=== PATIENT | male | born 1985 | race American Indian/Alaskan Native ===

== ENCOUNTER 2016-11-19 06:52 | Emergency (ER) | payer MEDICAID ==
[2016-11-19 06:53] VITALS: BMI 20.3
[2016-11-19 07:06] VITALS: TEMP 97.9
[2016-11-19] MEDS ORDERED: Bacitracin 500 Units/gm Oint Foilpak UD TOP STA (07:26)
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
[2016-11-19] MEDS ORDERED: Lidocaine 1% Inj (20ml) SC STA (08:11)
[2016-11-19 09:29] VITALS: BP 117/67; PULSE 67; RESP 15; O2SAT 100
== END 2016-11-19 09:44 | disposition home or self-care (01) ==
LOC: ED 06:52
DX: S01.01XA Laceration without foreign body of scalp, initial encounter (principal); S41.112A Laceration without foreign body of left upper arm, initial encounter; S51.011A Laceration without foreign body of right elbow, initial encounter; Y08.89XA Assault by other specified means, initial encounter; Y92.89 Other specified places as the place of occurrence of the external cause

== ENCOUNTER 2016-12-03 22:44 | Emergency (ER) | payer MEDICAID ==
[2016-12-03 22:45] VITALS: BMI 20.3
[2016-12-03 22:58] VITALS: BP 130/80; PULSE 97; RESP 18; TEMP 98.1; O2SAT 98
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
== END 2016-12-04 00:02 | disposition home or self-care (01) ==
LOC: ED 22:44
DX: Z48.02 Encounter for removal of sutures (principal)

== ENCOUNTER 2017-01-19 22:49 | Emergency (ER) | payer MEDICAID ==
[2017-01-19 22:53] VITALS: BMI 21.3
[2017-01-19 22:55] VITALS: BP 133/85; RESP 18; TEMP 97.7; O2SAT 100
[2017-01-19] MEDS ORDERED: Albuterol-Ipratrop 3 mg / 0.5 (3 ml) UD IH STA (22:58)
--- NOTE | 2017-01-19 23:02 | ED PDOC ---
Arrival/HPI - General Historian: Patient - General Chief Complaint: Shortness Of Breath Time Seen by Provider: 01/19/17 22:56 - History of Present Illness Narrative History of Present Illness (Text): 01/19/17 22:59 31 y/o male, pmh including asthma, nkda, c/o wheezing and coughing x 1 hour. Pt. stated that he is out of his symbicort which he takes it daily, been coughing and wheezing started about 1 hour ago, no albuterol MDI as well, no night sweat, no dizziness, no numbness or tingling, no palpitation, no rash, no pleuritic pain, no other medical or psychological complaints. (Shon Herrera) Past Medical History - Provider Review Nursing Documentation Reviewed: Yes - Infectious Disease Hx of Infectious Diseases: None - Tetanus Immunization Tetanus Immunization: Up to Date - Cardiac Hx Cardiac Disorders: No - Pulmonary Hx Respiratory Disorders: Yes Hx Asthma: Yes - Neurological Hx Neurological Disorder: No - HEENT Hx HEENT Disorder: No - Renal Hx Renal Disorder: No - Endocrine/Metabolic Hx Endocrine Disorders: No - Hematological/Oncological Hx Blood Disorders: No - Integumentary Hx Dermatological Disorder: No - Musculoskeletal/Rheumatological Hx Musculoskeletal Disorders: No - Gastrointestinal Hx Gastrointestinal Disorders: No - Genitourinary/Gynecological Hx Genitourinary Disorders: No - Psychiatric Hx Psychophysiologic Disorder: No Hx Substance Use: No - Anesthesia Hx Anesthesia: No Hx Anesthesia Reactions: No Hx Malignant Hyperthermia: No Family/Social History - Physician Review Nursing Documentation Reviewed: Yes Family/Social History: Unknown Family HX Smoking Status: Never Smoked Hx Alcohol Use: Yes Frequency of alcohol use: Socially Hx Substance Use: No Allergies/Home Meds Allergies/Adverse Reactions: Allergies cat dander Allergy (Verified 11/30/15 17:37) ANAPHYLAXIS dog dander Allergy (Verified 11/30/15 17:37) ANAPHYLAXIS Home Medications: Home Meds Medication Instructions Recorded Confirmed Albuterol HFA [Ventolin HFA] 1 puff IH PRN PRN 11/30/15 11/30/15 Review of Systems - Review of Systems Constitutional: absent: Fatigue, Fevers Eyes: absent: Vision Changes ENT: absent: Hearing Changes Respiratory: Cough, Wheezing. absent: SOB, Sputum Cardiovascular: absent: Chest Pain Gastrointestinal: absent: Abdominal Pain, Diarrhea, Nausea, Vomiting Genitourinary Male: absent: Dysuria, Frequency, Hematuria Musculoskeletal: absent: Arthralgias, Back Pain, Neck Pain, Joint Swelling, Myalgias Psychiatric: absent: Anxiety, Depression, Suicidal Ideation Physical Exam Vital Signs Reviewed: Yes Temperature: Afebrile Blood Pressure: Normal Pulse: Tachycardic Respiratory Rate: Normal Appearance: Positive for: Well-Appearing, Non-Toxic, Comfortable Pain Distress: None Mental Status: Positive for: Alert and Oriented X 3 - Systems Exam Head: Present: Atraumatic, Normocephalic Pupils: Present: PERRL Extroacular Muscles: Present: EOMI Conjunctiva: Present: Normal Mouth: Present: Moist Mucous Membranes Neck: Present: Normal Range of Motion Respiratory/Chest: Present: Clear to Auscultation, Good Air Exchange, Wheezes, Decreased Breath Sounds, Other (mild decrease aeration and wheezing noted on the mid to lower lobe region). No: Respiratory Distress, Accessory Muscle Use, Rales, Rhonchi, Tachypneic Cardiovascular: Present: Regular Rate and Rhythm, Normal S1, S2. No: Murmurs Abdomen: Present: Normal Bowel Sounds. No: Tenderness, Distention, Peritoneal Signs Back: Present: Normal Inspection Upper Extremity: Present: Normal Inspection. No: Cyanosis, Edema Lower Extremity: Present: Normal Inspection. No: Edema Neurological: Present: GCS=15, CN II-XII Intact, Speech Normal Skin: Present: Warm, Dry, Normal Color. No: Rashes Psychiatric: Present: Alert, Oriented x 3, Normal Insight, Normal Concentration Vital Signs Temp Pulse Resp BP Pulse Ox 01/19/17 23:39 98 H 18 133/85 100 01/19/17 22:55 18 01/19/17 22:54 97.7 F 114 H 18 133/85 100 Medical Decision Making ED Course and Treatment: I was available for consultation during PA evaluation. The chart reviewed by me , and I agree with disposition. The documented history was done by the physician bearingizer. The documented physical exam was done by the physician bearingizer. The documented procedures were done by the physician bearingizer. ( Mauricio Patel) 01/19/17 23:01 -duoneb and prednisone -Pt. has symbicort prescription at home. 01/19/17 23:39 -Pt. feels much better, lung is clear to auscultate with no wheezing/crackles/ rhonchis, walking around and speaking on the cellphone with no respiratory complaints. -Discharge home with prednisone, albuterol MDI, continue symbicort at home, stay hydrated, bed rest, follow up with your own pmd within 2 days, return to the ER for any new or worsening signs or symptoms. (Shon Herrera) - Medication Orders Current Medication Orders: Discontinued Medications Albuterol/Ipratropium (Duoneb 3 Mg/0.5 Mg (3 Ml) Ud) 3 ml IH STAT STA Stop: 01/19/17 22:59 Last Admin: 01/19/17 23:23 Dose: 3 ml Prednisone (Prednisone Tab) 40 mg PO STAT STA Stop: 01/19/17 22:59 Last Admin: 01/19/17 23:23 Dose: 40 mg - PA / PORTER USED CAR LOT / Resident Statement MD/DO has reviewed & agrees with the documentation as recorded. Disposition/Present on Arrival - Present on Arrival Any Indicators Present on Arrival: No History of DVT/PE: No History of Uncontrolled Diabetes: No Urinary Catheter: No History of Decub. Ulcer: No History Surgical Site Infection Following: None - Disposition Have Diagnosis and Disposition been Completed?: Yes Disposition Time: 23:02 Patient Plan: Discharge - Disposition Diagnosis: Asthma attack Disposition: HOME/ ROUTINE Condition: GOOD Additional Instructions: Discharge home with prednisone, albuterol MDI, continue symbicort at home, stay hydrated, bed rest, follow up with your own pmd within 2 days, return to the ER for any new or worsening signs or symptoms. Prescriptions: Albuterol Sulfate [Proair Respiclick] 2 puff IH QID PRN #1 bot PRN Reason: Other predniSONE [Prednisone] 2 tab PO DAILY #6 tab Referrals: [facility] [place] [facility] [place] - Follow up with primary Forms: WORK NOTE
[2017-01-19 23:41] VITALS: PULSE 98
== END 2017-01-19 23:50 | disposition home or self-care (01) ==
LOC: ED 22:49
DX: J45.909 Unspecified asthma, uncomplicated (principal)

== ENCOUNTER 2017-11-17 20:43 | Emergency (ER) | payer MEDICAID ==
[2017-11-17 20:47] VITALS: BMI 19.8
[2017-11-17 20:48] VITALS: BP 138/90; PULSE 118; RESP 22; TEMP 97.8
[2017-11-17 20:50] VITALS: O2SAT 99
[2017-11-17] MEDS ORDERED: Albuterol-Ipratrop 3 mg / 0.5 (3 ml) UD IH STA ×2 (20:51→21:05)
[2017-11-17] MEDS ORDERED: Albuterol-Ipratrop 3 mg / 0.5 (3 ml) UD ONE (20:53)
--- NOTE | 2017-11-17 20:53 | ED PDOC ---
Arrival/HPI <Jey Yee - Last Filed: 11/17/17 21:31> - General Historian: Patient <Dane Sepulveda - Last Filed: 11/17/17 22:06> - General Time Seen by Provider: 11/17/17 20:47 - History of Present Illness Narrative History of Present Illness (Text): 11/17/17 20:50 32yo male Asthmatic who present with complaint of SOB since this evening. He did not use any inhaler at home. states this is his typical symptom, with Asthma. He denies fever, chills, cough, sick contact. (Dane Sepulveda) Past Medical History - Provider Review Nursing Documentation Reviewed: Yes - Infectious Disease Hx of Infectious Diseases: None - Tetanus Immunization Tetanus Immunization: Up to Date - Cardiac Hx Cardiac Disorders: No - Pulmonary Hx Respiratory Disorders: Yes Hx Asthma: Yes - Neurological Hx Neurological Disorder: No - HEENT Hx HEENT Disorder: No - Renal Hx Renal Disorder: No - Endocrine/Metabolic Hx Endocrine Disorders: No - Hematological/Oncological Hx Blood Disorders: No - Integumentary Hx Dermatological Disorder: No - Musculoskeletal/Rheumatological Hx Musculoskeletal Disorders: No - Gastrointestinal Hx Gastrointestinal Disorders: No - Genitourinary/Gynecological Hx Genitourinary Disorders: No - Psychiatric Hx Psychophysiologic Disorder: No Hx Substance Use: No - Anesthesia Hx Anesthesia: No Hx Anesthesia Reactions: No Hx Malignant Hyperthermia: No <Dane Sepulveda - Last Filed: 11/17/17 22:06> Family/Social History - Physician Review Nursing Documentation Reviewed: Yes Family/Social History: Unknown Family HX Smoking Status: Never Smoked Hx Alcohol Use: Yes Hx Substance Use: No <Dane Sepulveda - Last Filed: 11/17/17 22:06> Allergies/Home Meds <Jey Yee - Last Filed: 11/17/17 21:31> <Dane Sepulveda - Last Filed: 11/17/17 22:06> Allergies/Adverse Reactions: Allergies cat dander Allergy (Verified 11/17/17 20:47) ANAPHYLAXIS dog dander Allergy (Verified 11/17/17 20:47) ANAPHYLAXIS Home Medications: Home Meds Medication Instructions Recorded Confirmed Albuterol HFA [Ventolin HFA] 1 puff IH PRN PRN 11/30/15 11/17/17 Review of Systems - Physician Review All systems were reviewed & negative as marked: Yes - Review of Systems Constitutional: Normal Eyes: Normal ENT: Normal Respiratory: SOB, Wheezing. absent: Cough, Sputum Cardiovascular: Normal Gastrointestinal: Normal Genitourinary Male: Normal Musculoskeletal: Normal Skin: Normal Neurological: Normal Endocrine: Normal Hemo/Lymphatic: Normal Psychiatric: Normal <Dane Sepulveda - Last Filed: 11/17/17 22:06> Physical Exam Vital Signs Reviewed: Yes Temperature: Afebrile Blood Pressure: Normal Pulse: Tachycardic Respiratory Rate: Normal Appearance: Positive for: Well-Appearing, Non-Toxic, Comfortable Pain Distress: None Mental Status: Positive for: Alert and Oriented X 3 - Systems Exam Head: Present: Atraumatic, Normocephalic Pupils: Present: PERRL Extroacular Muscles: Present: EOMI Conjunctiva: Present: Normal Mouth: Present: Moist Mucous Membranes Neck: Present: Normal Range of Motion Respiratory/Chest: Present: Good Air Exchange, Wheezes (Mild expiratory wheeze at the bases). No: Clear to Auscultation, Respiratory Distress, Accessory Muscle Use, Decreased Breath Sounds, Rales, Retracting, Rhonchi Cardiovascular: Present: Regular Rate and Rhythm, Normal S1, S2. No: Murmurs Abdomen: Present: Normal Bowel Sounds. No: Tenderness, Distention, Peritoneal Signs Back: Present: Normal Inspection Upper Extremity: Present: Normal Inspection. No: Cyanosis, Edema Lower Extremity: Present: Normal Inspection. No: Edema Neurological: Present: GCS=15, CN II-XII Intact, Speech Normal Skin: Present: Warm, Dry, Normal Color. No: Rashes Psychiatric: Present: Alert, Oriented x 3, Normal Insight, Normal Concentration <Dane Sepulveda A - Last Filed: 11/17/17 22:06> Vital Signs Temp Pulse Resp BP Pulse Ox 11/17/17 20:48 97.8 F 118 H 22 138/90 99 11/17/17 20:47 97.8 F 118 H 22 138/90 98 Medical Decision Making <Jey Yee - Last Filed: 11/17/17 21:31> <Dane Sepulveda - Last Filed: 11/17/17 22:06> ED Course and Treatment: 11/17/17 21:19 PT in ED for stated history. On re evaluation he states he feels much better. He was ambulatory and speaking in full sentence without distress. His lung was CTA b/l. He was DC home with Albuterol inhaler. (Dane Sepulveda) - Medication Orders Current Medication Orders: Discontinued Medications Albuterol/Ipratropium (Duoneb 3 Mg/0.5 Mg (3 Ml) Ud) 3 ml IH STAT STA Stop: 11/17/17 20:52 Last Admin: 11/17/17 20:55 Dose: 3 ml Albuterol/Ipratropium (Duoneb 3 Mg/0.5 Mg (3 Ml) Ud) 3 ml IH STAT STA Stop: 11/17/17 21:06 Prednisone (Prednisone Tab) 60 mg PO STAT ONE Stop: 11/17/17 20:53 Last Admin: 11/17/17 20:56 Dose: 60 mg - PA / CATERER HELPER / Resident Statement / has reviewed & agrees with the documentation as recorded. <Jey Yee - Last Filed: 11/17/17 21:31> Disposition/Present on Arrival <Jey Yee - Last Filed: 11/17/17 21:31> - Present on Arrival Any Indicators Present on Arrival: No History of DVT/PE: No History of Uncontrolled Diabetes: No Urinary Catheter: No History of Decub. Ulcer: No History Surgical Site Infection Following: None - Disposition Have Diagnosis and Disposition been Completed?: Yes Disposition Time: 21:35 Patient Plan: Discharge <Dane Sepulveda - Last Filed: 11/17/17 22:06> - Disposition Diagnosis: Asthma attack Disposition: HOME/ ROUTINE Patient Problems: Current Active Problems Problem Status Onset Asthma attack Acute Condition: STABLE Discharge Instructions (ExitCare): Asthma, Adult (DC) Additional Instructions: Follow up with your doctor Return to ED for any new or worsening symptoms Prescriptions: Albuterol HFA [Ventolin HFA 90 mcg/actuation (8 g)] 2 puff IH [id number] #1 puff Referrals: Yuniel John, [Primary Care Provider] - Follow up with primary [facility] [place] [facility] [place] - Follow up with primary
== END 2017-11-17 21:27 | disposition home or self-care (01) ==
LOC: ED 20:43
DX: J45.909 Unspecified asthma, uncomplicated (principal)